=== PATIENT | female | born 1960 | race Caucasian/White ===

== ENCOUNTER 2019-05-02 16:03 | Emergency (ER) | payer OTHER ==
[~2019-05-02] VITALS: Ht 160 cm; Wt 80.3 kg
[~2019-05-02 16:03] MED LIST: BENICAR HCT 201 EACH PO; FLEXERIL PO; FLOMAX0.4 MG PO; FOSAMAX 70 MG T70 MG; IBUPROFEN 600600 M1 PO; LEVOTHYROXIN0.088 MG PO; LISINOPRIL20 MG; NORCO 5-325 TA1 EACH PO; PERCOCET 5-3251 EACH PO; PERCOCET PO; SIMVASTATIN; SYNTHROID100 MCG PO; ZOFRAN ODT4 MG PO
[2019-05-02 16:47] LABS: HEMATOCRIT 39.8 % (37.0-47.0); HEMOGLOBIN 13.3 gm/dL (12.0-15.0); MCH 27.6 pg (26.0-34.0); MCHC 33.3 g/dL (28.0-37.0); MCV 82.7 fL (80.0-100.0); NUCLEATED RBCS 0 /100WBC; PLATELET COUNT* 367 thou/uL (150-400); RBC 4.81 mil/uL (4.20-5.00); WBC 13.3 thou/uL (4.0-11.0)
[2019-05-02 16:57] LABS: POTASSIUM 3.9 mmol/L (3.5-5.1)
[2019-05-02 17:01] LABS: ALBUMIN 4.5 g/dL (3.4-5.0); TOTAL BILIRUBIN 1.1 mg/dL (<0.1-1.0); TOTAL PROTEIN 8.9 g/dL (6.4-8.2)
[2019-05-02 17:28] LABS: ABSOLUTE LYMPHOCYTES 0.5 thou/uL (0.8-5.3); ABSOLUTE MONOCYTES 0.8 thou/uL (0.0-1.2); ANISOCYTOSIS 1+; PLATELET ESTIMATE ADEQUATE
[2019-05-02 18:17] LABS: URINE BILIRUBIN NEGATIVE (Negative); URINE BLOOD 3+ (Negative); URINE CLARITY SL CLOUDY; URINE COLOR YELLOW; URINE GLUCOSE-RANDOM NEGATIVE (Negative); URINE KETONES 1+ (Negative); URINE LEUKOCYTES-REFLEX NEGATIVE (Negative); URINE NITRITE-REFLEX NEGATIVE (Negative); URINE PROTEIN 1+ (Negative); URINE SPECIFIC GRAVITY >= 1.030 (1.005-1.030); URINE UROBILINOGEN 0.2 E.U./dl (0.2-1.0)
[2019-05-02 18:27] LABS: BACTERIA-REFLEX >30 Many /HPF (None Seen); SQUAMOUS 4-10 Moderate /LPF (0-3); URINE WBC-REFLEX 0-5 Rare /HPF (0-5)
[2019-05-02 18:28] LABS: CASTS None Seen /LPF (None Seen); CRYSTALS None Seen /LPF (None Seen); MUCUS >6 Heavy strn/LPF (None Seen)
[2019-05-02] MEDS ORDERED: ONDANSETRON HCL4 M2 PO (19:00)
[2019-05-02] MEDS ORDERED: IBUPROFEN 800800 M1 PO (19:00)
[2019-05-02] MEDS ORDERED: PERCOCET PO (19:00)
[2019-05-02] MEDS ORDERED: MACROBID 100 M100 M2 PO (19:00)
[2019-05-02 19:18] VITALS: BP 124/72
--- NOTE | 2019-05-03 11:02 | EKG ---
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: FARZANA : 1960 Requested By: Magnolia Armas Order Number: [id number] MD: Moreno Ibrahim Measurements Intervals [place] Rate: 96 P: [place]: QRS: -8 QRSD: 83 T: 234 QT: 334 QTc: 422 Interpretive Statements Sinus rhythm Abnormal R-wave progression, consider lead misplacement LVH with secondary repolarization abnormality, by voltage No previous ECG available for comparison Electronically Signed On 05-03-2019 11:02:03 CLINICAL NUTRITIONIST by Moreno Ibrahim [email or web address] <ELECTRONICALLY SIGNED> By: Moreno Ibrahim MD, [facility] 05/03/19 1102 1740 40 Moreno Ibrahim MD, FACC /EPI
== END 2019-05-02 19:18 | disposition home or self-care (01) ==
LOC: M.ERS 16:03
PROVIDERS: Nurse Practitioner Family
DX: K85.90 Acute pancreatitis without necrosis or infection, unspecified (principal); N39.0 Urinary tract infection, site not specified; R19.7 Diarrhea, unspecified; I10 Essential (primary) hypertension; E03.9 Hypothyroidism, unspecified; Z88.6 Allergy status to analgesic agent; Z88.5 Allergy status to narcotic agent; Z88.0 Allergy status to penicillin; Z88.8 Allergy status to other drugs, medicaments and biological substances

== ENCOUNTER 2019-06-16 17:24 | Emergency (ER) | payer OTHER ==
[~2019-06-16] VITALS: Ht 157.5 cm; Wt 81.7 kg
[~2019-06-16 17:24] MED LIST changes: +IBUPROFEN 800800 M1 PO; +MACROBID 100 M100 M2 PO; +ONDANSETRON HCL4 M2 PO
[2019-06-16] MEDS ORDERED: PEPCID20 MG PO (18:45)
[2019-06-16] MEDS ORDERED: DIPHENHIST50 MG PO (18:45)
[2019-06-16] MEDS ORDERED: MEDROLDOSEPACK PO (18:45)
[2019-06-16 18:59] VITALS: BP 120/67
== END 2019-06-16 19:01 | disposition home or self-care (01) ==
LOC: M.ERS 17:24
DX: R50.9 Fever, unspecified (principal); T36.8X5A Adverse effect of other systemic antibiotics, initial encounter; E03.9 Hypothyroidism, unspecified; I10 Essential (primary) hypertension; Z87.442 Personal history of urinary calculi; Z98.890 Other specified postprocedural states; Z88.6 Allergy status to analgesic agent; Z88.1 Allergy status to other antibiotic agents; Z88.0 Allergy status to penicillin; Z88.8 Allergy status to other drugs, medicaments and biological substances; Y92.89 Other specified places as the place of occurrence of the external cause